=== PATIENT | male | born 1970 | race Caucasian/White ===

== ENCOUNTER 2016-09-15 05:44 | Inpatient (IN) | payer OTHER ==
[~2016-09-15] VITALS: Ht 185.4 cm; Wt 63.6 kg
[2016-09-15] VITALS (14 sets, daily range): BP systolic 127–161; BP diastolic 60–90
[~2016-09-15 05:44] MED LIST: CONTOUR1 EACH MISC; LEXAPRO20 MG PO; MOTRIN800 MG PO; NOVOLOG MI100 UNIT/M PO; NOVOLOG MI100 UNIT/M SC; NOVOLOG MI100 UNIT/M SQ; NOVOLOG PE100 UNITS/ SC; OMEPRAZOLE10 M1 PO; PROZAC10 MG PO; UNK BP MED; VALPROIC ACID
[2016-09-15 06:48] LABS: BASOPHIL COUNT 0.1 K/uL (0-0.1); EOSINOPHIL (%) 0 % (0-5); IMMATURE GRANULOCYTE (%) 1.3 % (0.0-0.7); IMMATURE GRANULOCYTE COUNT 0.2 K/uL; INSTRUMENT ABS NEUTROPHIL CT 14.1 K/uL; LYMPHOCYTE COUNT 1.3 K/uL (1.0-2.8); MCH 31.2 PG (29.0-34.0); MCV 89.1 FL (86-99); MEAN PLAT.VOLUME 10.7 uM^3 (9.0-12.4); MONOCYTE (%) 10.1 % (3-12); MONOCYTE COUNT 1.8 K/uL (0-0.8); NEUTROPHIL (%) 80.9 % (45-76); NEUTROPHIL COUNT 14.1 K/uL (1.8-6.4); PLATELET COUNT 231 K/uL (156-360); RBC DIS.WIDTH-CV 11.9 % (11.8-14.6); RBC DIS.WIDTH-SD 38.5 % (39-53); RED BLOOD COUNT 4.94 M/uL (4.00-5.50); WHITE BLOOD COUNT 17.4 K/uL (4.1-10.2)
[2016-09-15 07:05] LABS: CHLORIDE 68 mEq/L (99-109); POTASSIUM 5.6 mEq/L (3.7-5.4)
[2016-09-15 07:10] LABS: TOTAL BILIRUBIN 0.5 mg/dL (0.0-1.0)
[2016-09-15 07:11] LABS: ALKALINE PHOSPHATASE 93 IU/L (3-129); GFR ESTIMATE (CALCULATED) 18 mL/min/
[2016-09-15 07:12] LABS: ANION GAP 41 MEQ/L (2-14); UREA NITROGEN (BUN) 50 mg/dL (9-23)
[2016-09-15 07:27] LABS: LIPASE 4002 U/L (1.0-51.0)
[2016-09-15 07:33] LABS: GLUCOSE 845 mg/dL (70-99)
[2016-09-15] MEDS ORDERED: HUMALOG100 UNIT/2 SC (07:55)
[2016-09-15 08:01] LABS: CARBOXY HGB 1.5 % (0-5); METHEMOGLOBIN 1.2 % (0-1.5); PCO2 < 19 mm Hg (35-45); PO2 139 mm Hg (80-100)
[2016-09-15 08:02] LABS: SITE LR; pH 7.05 (7.35-7.45)
[2016-09-15 08:03] LABS: COMMENTS - BLOOD GASES A+C+; FI02 0.21 %
[2016-09-15 08:24] LABS: Estimated Average Glucose 329 mg/dL (70-123); HEMOGLOBIN A1c (GLYCOHEMOGLOB) 13.1 % HGB (Below 5.7)
[2016-09-15 08:41] LABS: SODIUM 113 mEq/L (136-147)
[2016-09-15 09:09] LABS: ANION GAP 40 MEQ/L (2-14); CHLORIDE 72 MEQ/L (99-109); SAMPLE HEMOLYSIS CHECK 0; SAMPLE ICTERIC CHECK 0; SAMPLE LIPEMIA CHECK 0; UREA NITROGEN (BUN) 50 mg/dL (9-23)
[2016-09-15 09:10] LABS: GFR ESTIMATE (CALCULATED) 27 mL/min/; GLUCOSE 882 mg/dL (70-99); SODIUM 117 MEQ/L (136-147)
[2016-09-15 10:44] LABS: GLUCOSE 649 mg/dL (70-99)
[2016-09-15 11:17] LABS: METH RESISTANT S AUREUS PCR NEGATIVE (NEGATIVE)
[2016-09-15 11:18] LABS: PROBE CHECK PASS; SPECIMEN PROCESSING CONTROL PASS
[2016-09-15 12:39] LABS: MAGNESIUM 2.2 mg/dl (1.3-2.7)
[2016-09-15 12:48] LABS: SERUM ETHYL ALCOHOL < 10 mg/dL
[2016-09-15 12:50] LABS: AMYLASE 1816 IU/L (1-118)
[2016-09-15 13:23] LABS: ANION GAP 29 MEQ/L (2-14); CHLORIDE 86 MEQ/L (99-109); GFR ESTIMATE (CALCULATED) 36 mL/min/; GLUCOSE 426 mg/dL (70-99); SAMPLE HEMOLYSIS CHECK 0; SAMPLE ICTERIC CHECK 0; SAMPLE LIPEMIA CHECK 0; SODIUM 125 MEQ/L (136-147); UREA NITROGEN (BUN) 44 mg/dL (9-23)
[2016-09-15 13:34] LABS: POINT-OF-CARE METER ID UU13113731
[2016-09-15 14:17] LABS: POINT-OF-CARE METER ID UU13113731
[2016-09-15 15:25] LABS: POINT-OF-CARE METER ID UU13113731
[2016-09-15 16:22] LABS: POINT-OF-CARE METER ID UU13113731
[2016-09-15 16:27] LABS: ANION GAP 23 MEQ/L (2-14); CHLORIDE 92 MEQ/L (99-109); GFR ESTIMATE (CALCULATED) 53 mL/min/; GLUCOSE 282 mg/dL (70-99); LIPASE 1862 U/L (1.0-51.0); POTASSIUM 3.7 MEQ/L (3.7-5.4); SAMPLE HEMOLYSIS CHECK 0; SAMPLE ICTERIC CHECK 0; SAMPLE LIPEMIA CHECK 0; SODIUM 128 MEQ/L (136-147); UREA NITROGEN (BUN) 38 mg/dL (9-23)
[2016-09-15 17:22] LABS: POINT-OF-CARE METER ID UU13113731
[2016-09-15 18:24] LABS: POINT-OF-CARE METER ID UU13113731
[2016-09-15 19:17] LABS: ADD MIUA? YES; BILIRUBIN NEGATIVE; BLOOD MODERATE; COLOR YELLOW ((YELLOW)); GLUCOSE (STRIP) >=500; KETONES 80; LEUKOCYTES NEGATIVE; NITRITE NEGATIVE; PROTEIN (STRIP) 30; SPECIFIC GRAVITY 1.018 (1.000-1.030); UROBILINOGEN 0.2 MG/DL (0.2-1.0)
[2016-09-15 19:37] LABS: UR CREATININE CONCENTRATION 43.3 MG/DL
[2016-09-15 19:42] LABS: BACTERIA RARE /HPF; EPITHELIAL CELLS RARE /HPF; HYALINE CASTS 15-20 /LPF; MUCUS TRACE /LPF; RED BLOOD CELLS 0-5 /HPF (0-5); WHITE BLOOD CELLS 0-5 /HPF (0-5)
[2016-09-15 19:45] LABS: POINT-OF-CARE METER ID UU13113731
[2016-09-15 20:27] LABS: ANION GAP 13 MEQ/L (2-14); CHLORIDE 95 MEQ/L (99-109); POTASSIUM 3.2 MEQ/L (3.7-5.4); SAMPLE HEMOLYSIS CHECK 0; SAMPLE ICTERIC CHECK 0; SAMPLE LIPEMIA CHECK 0; SODIUM 128 MEQ/L (136-147)
[2016-09-15 20:32] LABS: GFR ESTIMATE (CALCULATED) > 59 mL/min/; GLUCOSE 209 mg/dL (70-99); UREA NITROGEN (BUN) 32 mg/dL (9-23)
[2016-09-15 20:55] LABS: POINT-OF-CARE METER ID UU13113731
[2016-09-15 22:00] LABS: POINT-OF-CARE METER ID UU13113731
[2016-09-15 23:07] LABS: POINT-OF-CARE METER ID UU13113731
[2016-09-16] VITALS (21 sets, daily range): BP systolic 115–158; BP diastolic 58–84
[2016-09-16 00:14] LABS: POINT-OF-CARE METER ID UU13113731
[2016-09-16 01:03] LABS: POTASSIUM 3.8 mEq/L (3.7-5.4); SODIUM 132 mEq/L (136-147)
[2016-09-16 01:04] LABS: GLUCOSE 133 mg/dL (70-99)
[2016-09-16 01:06] LABS: ANION GAP 13 MEQ/L (2-14)
[2016-09-16 01:07] LABS: CHLORIDE 98 mEq/L (99-109)
[2016-09-16 01:08] LABS: GFR ESTIMATE (CALCULATED) 53 mL/min/
[2016-09-16 01:09] LABS: UREA NITROGEN (BUN) 27 mg/dL (9-23)
[2016-09-16 01:21] LABS: POINT-OF-CARE METER ID UU13113731
[2016-09-16 06:28] LABS: AMYLASE 544 IU/L (1-118); ANION GAP 12 MEQ/L (2-14); CHLORIDE 97 MEQ/L (99-109); GFR ESTIMATE (CALCULATED) > 59 mL/min/; GLUCOSE 156 mg/dL (70-99); LIPASE 568 U/L (1.0-51.0); MAGNESIUM 2.3 mg/dl (1.3-2.7); POTASSIUM 3.7 MEQ/L (3.7-5.4); SAMPLE HEMOLYSIS CHECK 0; SAMPLE ICTERIC CHECK 0; SAMPLE LIPEMIA CHECK 0; SODIUM 130 MEQ/L (136-147); UREA NITROGEN (BUN) 24 mg/dL (9-23)
[2016-09-16 06:35] LABS: EOSINOPHIL (%) 0.1 % (0-5); HEMATOCRIT 35.1 % (38.0-50.0); IMMATURE GRANULOCYTE (%) 0.4 % (0.0-0.7); INSTRUMENT ABS NEUTROPHIL CT 8.3 K/uL; LYMPHOCYTE COUNT 0.9 K/uL (1.0-2.8); MCH 31.3 PG (29.0-34.0); MCHC 37.3 G/DL (30.0-36.0); MONOCYTE (%) 7.5 % (3-12); MONOCYTE COUNT 0.8 K/uL (0-0.8); NEUTROPHIL (%) 83.3 % (45-76); NEUTROPHIL COUNT 8.3 K/uL (1.8-6.4); RBC DIS.WIDTH-CV 11.8 % (11.8-14.6); RBC DIS.WIDTH-SD 35.7 % (39-53); RED BLOOD COUNT 4.18 M/uL (4.00-5.50)
[2016-09-16 06:39] LABS: MEAN PLAT.VOLUME 10.6 uM^3 (9.0-12.4)
[2016-09-16 06:41] LABS: PLATELET COUNT UNABLE TO REPORT K/uL (156-360)
[2016-09-16 12:16] LABS: POINT-OF-CARE METER ID UU14174217
[2016-09-16 14:33] LABS: POINT-OF-CARE METER ID UU13113731
[2016-09-16 17:23] LABS: PLAT.SUFFICIENCY ADEQUATE; PLATELET CLUMPS PRESENT - PLATELET COUNT APPEARS ADQ.
[2016-09-16 21:47] LABS: POINT-OF-CARE METER ID UU13113731
[2016-09-17] VITALS (7 sets, daily range): BP systolic 108–150; BP diastolic 66–86
[2016-09-17 06:42] LABS: ANION GAP 15 MEQ/L (2-14); CHLORIDE 97 MEQ/L (99-109); GFR ESTIMATE (CALCULATED) > 59 mL/min/; GLUCOSE 150 mg/dL (70-99); MAGNESIUM 2.4 mg/dl (1.3-2.7); POTASSIUM 3.2 MEQ/L (3.7-5.4); SAMPLE HEMOLYSIS CHECK 0; SAMPLE ICTERIC CHECK 0; SAMPLE LIPEMIA CHECK 0; SODIUM 136 MEQ/L (136-147); UREA NITROGEN (BUN) 14 mg/dL (9-23)
[2016-09-17 07:03] LABS: EOSINOPHIL (%) 0.1 % (0-5); HEMATOCRIT 34.5 % (38.0-50.0); IMMATURE GRANULOCYTE (%) 0.3 % (0.0-0.7); INSTRUMENT ABS NEUTROPHIL CT 4.9 K/uL; LYMPHOCYTE COUNT 1.4 K/uL (1.0-2.8); MCHC 35.9 G/DL (30.0-36.0); MCV 86.3 FL (86-99); MEAN PLAT.VOLUME 10.3 uM^3 (9.0-12.4); MONOCYTE (%) 8.3 % (3-12); MONOCYTE COUNT 0.6 K/uL (0-0.8); NEUTROPHIL (%) 71.1 % (45-76); NEUTROPHIL COUNT 4.9 K/uL (1.8-6.4); RBC DIS.WIDTH-SD 38.2 % (39-53)
[2016-09-17 07:06] LABS: PLATELET COUNT 130 K/uL (156-360); WHITE BLOOD COUNT 6.9 K/uL (4.1-10.2)
[2016-09-17 12:20] LABS: POINT-OF-CARE METER ID UU13113807
[2016-09-17] MEDS ORDERED: FOLIC ACID1 MG PO (12:58)
[2016-09-17] MEDS ORDERED: THIAMINE HCL100 MG PO (12:58)
[2016-09-17] MEDS ORDERED: LEVEMIR100 UNIT/2 SC (12:58)
[2016-09-17] MEDS ORDERED: HUMALOG100 UNIT/2 SC ×2 (12:59→13:00)
[2016-09-17] MEDS ORDERED: LIPITOR40 MG PO (13:08)
== END 2016-09-17 16:35 | disposition home or self-care (01) | DRG 438 ==
LOC: EME 05:44 → 4WEST 08:35 → 4SOUTH 08:35 → EDOF 08:35 → 4WEST 09:53 → 4SOUTH 09-17 10:14
PROVIDERS: Emergency Medicine; Internal Medicine; Internal Medicine Nephrology
DX: K85.20 Alcohol induced acute pancreatitis without necrosis or infection (principal); E10.10 Type 1 diabetes mellitus with ketoacidosis without coma; N17.9 Acute kidney failure, unspecified; E87.1 Hypo-osmolality and hyponatremia; E87.6 Hypokalemia; E83.39 Other disorders of phosphorus metabolism; E87.5 Hyperkalemia; E87.8 Other disorders of electrolyte and fluid balance, not elsewhere classified; E83.51 Hypocalcemia; F10.20 Alcohol dependence, uncomplicated; F17.210 Nicotine dependence, cigarettes, uncomplicated; Z91.14 Patient's other noncompliance with medication regimen; Z79.4 Long term (current) use of insulin; Z88.5 Allergy status to narcotic agent
CPT/HCPCS: 36600; 74022; 74176; 80048; 80048 91; 80053; 81003; 82150; 82570; 82803; 82948; 83036; 83690; 83735; 83930; 83935; 84100; 84156; 84300; 84550; 84999; 85025; 87040; 87086; 87641; 99202; 99281; 99285; G0480; J0610; J1644; J1815; J2405; J2543; J3411; J3475; J3480; J7030; J7050; J7070; J7120; S0028